=== PATIENT | female | born 1955 | race Caucasian/White ===

== ENCOUNTER 2017-10-10 09:00 | Outpatient (CLI) | payer BC | END 2017-10-10 23:59 | disposition home or self-care (01) | LOC: D.MAMMO 09:00 | DX: Z12.31 Encounter for screening mammogram for malignant neoplasm of breast (principal) ==

== ENCOUNTER → 2018-11-17 20:47 | Outpatient (CLI) | payer BC | END | disposition home or self-care (01) | LOC: D.MAMMO 08:00 | DX: Z12.31 Encounter for screening mammogram for malignant neoplasm of breast (principal) ==

== ENCOUNTER → 2021-04-04 18:55 | Outpatient (CLI) | payer BC ==
[2021-04-04 19:20] LABS: EOSINOPHILS 1.2 % (0-7); HEMATOCRIT 38.9 % (36.0-48.0); HEMOGLOBIN 12.9 g/dL (12-16); MCH 30.8 pg (26.0-34.0); MCHC 33.1 g/dL (31.0-37.0); MEAN PLATELET VOLUME 8.5 fL (7.4-10.4); MONOCYTES 5.4 % (2-11); NEUTROPHILS 47.4 % (40-80); PLATELET COUNT 311 10x3/uL (130-400); RBC 4.19 10x6/uL (4.00-5.40); RDW 13.5 % (11.5-14.5); WBC 5.6 10x3/uL (4.8-10.8)
[2021-04-04 19:21] LABS: C-REACTIVE PROTEIN 0.4 mg/dL (0.0-0.9); URIC ACID 4.6 mg/dL (2.6-7.2)
[2021-04-04 20:39] LABS: ERYTHROCYTE SEDIMENTATION RATE 12 mm/hr (0-30)
[2021-04-06 09:13] LABS: ANA REFLEX - DIRECT Negative (Negative)
== END | disposition home or self-care (01) ==
LOC: D.LABREF 18:55
PROVIDERS: ATTEND Clinical Nurse Specialist Family Health
DX: M13.0 Polyarthritis, unspecified (principal)